=== PATIENT | male | born 1965 | race African-American/Black ===

== ENCOUNTER 2024-10-06 07:17 | Emergency (ER) | payer MEDICARE, MEDICAID, SELFPAY ==
--- NOTE | 2024-10-06 07:27 | ED_ITS ---
HPI - CPR General Chief Complaint: Cardiac Arrest/CPR Stated Complaint: CARDIAC ARREST Time Seen by Provider: 10/06/24 07:27 Source: EMS Mode of arrival: EMS Limitations: other History of Present Illness HPI narrative: This is 58 years old male resident of [facility] brought in by the truss designer in full cardiac arrest. Patient was intubated pre-hospital, 45 minutes of CPR were done pre-hospital rate received several epinephrine about 8. He arrived in full cardiac arrest CPR ongoing. Patient has history of normal pressure hydrocephalus, kidney failure, alcohol abuse, dementia, COPD, hypertens ion MD complaint: found unresponsive Onset (ago): hour(s) (1) Timing confirmed by: other (intermediate staff) Place: [facility] Bystander CPR performed: Yes Initial findings in the field: unresponsive and PEA ROSC in the field: No Known history of: other ( hypertension, dementia, renal failure, alcohol abuse, cocaine abuse) Treatments prior to arrival: intubation, BMV, chest compressions, epinephrine mgs #, sodium bicarbonate and calcium Related Data Allergies Allergy/AdvReac Type Severity Reaction Status Date / Time empagliflozin Allergy Unknown Verified 10/06/24 07:49 [From Jardiance] Penicillins Allergy Unknown Verified 10/06/24 07:49 Review of Systems Review of Systems: Yes Unobtainable due to mental condition [facility] Past Medical History [facility] Narrative: normal pressure hydrocephalus, kidney failure, COPD, cocaine abuse, hypertension, CVA, Source: nursing notes reviewed Social History Social History Advance Directives: No Advance Directives Information Provided: No Physical Exam Vital Signs: Vital Signs: BMI result Body Mass Index 19.7 no blood pressure no heart rate Const: Other: unresponsive orally intubated cachectic HEENT: Other: examination of the head eyes ears nose and throat no sign of trauma pupils fixed Neck: Neck: Yes normal visual inspection and Yes full ROM Resp: Other: ventilated by BVM Auscultation: clear to auscultation bilaterally Cardio: Other: no heart sound GI: Other: abdomen flat nondistended Neuro: Other: patient is unresponsive orally intubated Course Reevaluation(s) Reevaluation #1: patient arrived in full cardiac arrest we continued to round of CPR in the emergency room we gave him 1 epinephrine he was transient in VFib was defibrillated x1 then back to asystole pulseless code was called at 07:23 Am Time: 07:34 Reevaluation #2: spoke with ME they will call back Time: 07:47 Reevaluation #3: I called next of Kin Kendell Barrera [phone] no answer Time: 07:48 Additional Reevaluation(s): pt was accepted by [facility] Decision Making Medical Decision Making MDM Narrative: patient arrived in full cardiac arrest 45 minutes of pre-hospital ACLS, with the done of the entire round of CPR in the emergency department remained pulseless, cardiac echo ultrasound showed cardiac standstill he was pulseless a systolic code was called at 07:23 Differential Diagnosis Differential Diagnoses: The differential diagnosis associated with the presentation includes PE/dissection /IN/ hyperkalemia External Record Review External record reviewed: Other ( I reviewed records from the nursing facility) Discharge Plan Discharge Clinical Impression: Cardiac arrest Patient Disposition:
--- NOTE | 2024-10-06 07:42 | MHC.EDTECH ---
CALLED ME OFFICE PER DR CHANEY. SPOKE TO DIANE AT 740AM.
--- NOTE | 2024-10-06 07:45 | PC.NURSE ---
Addendum entered by Zena Andrews 10/06/24 08:31: [phone] updated number - called [facility] for records. message left with call center. Original Note: called [facility] for next [facility] kin, only listed was guardian - Kendell Barrera [phone].
[2024-10-06 07:47] VITALS: BMI 19.7
--- NOTE | 2024-10-06 07:57 | PC.NURSE ---
called [phone], declined case from [facility] - [phone]
--- NOTE | 2024-10-06 08:30 | MHC.EDTECH ---
[facility] ACCEPTED CASE #[id number].
--- NOTE | 2024-10-06 09:06 | PC.NURSE ---
no next of kin listed, unable to speak with guardian however call center has been notified. no belongings/jewelry brought in with patient, patient was wearing ariana upon arrival. unable to obtain home information.
== END 2024-10-06 10:11 | disposition expired ==
PROVIDERS: Emergency Provider Emergency Medicine; PCP Emergency Medicine
DX: I46.9 Cardiac arrest, cause unspecified (principal); G91.2 (Idiopathic) normal pressure hydrocephalus; I12.9 Hypertensive chronic kidney disease with stage 1 through stage 4 chronic kidney disease, or unspecified chronic kidney disease; N18.9 Chronic kidney disease, unspecified; F03.90 Unspecified dementia, unspecified severity, without behavioral disturbance, psychotic disturbance, mood disturbance, and anxiety; F10.11 Alcohol abuse, in remission
CPT/HCPCS: 96374; 99282; 99285